=== PATIENT | female | born 2000 | race Caucasian/White ===

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

== ENCOUNTER → 2022-03-31 | Outpatient (CLI) | payer OTHER ==
[2022-04-02 09:08] LABS: HIV AB/P24 AG SCREEN Non Reactive (Non Reactive)
[2022-04-04 09:56] LABS: CHLAMYDIA TRACHOMATIS, NAA Positive (Negative)
== END | disposition home or self-care (01) ==
LOC: LAB 16:04 → LAB SHORT 16:04
PROVIDERS: Nurse Practitioner Family
DX: Z11.3 Encounter for screening for infections with a predominantly sexual mode of transmission (principal)
CPT/HCPCS: 86592; 87389; 87491; 87591

== ENCOUNTER → 2023-05-28 | Outpatient (CLI) | payer SELFPAY ==
[2023-06-01 00:08] LABS: CHLAMYDIA TRACHOMATIS, NAA Negative (Negative)
== END ==
LOC: LAB SHORT 15:35 → LAB 15:35
PROVIDERS: Nurse Practitioner Family
DX: Z12.4 Encounter for screening for malignant neoplasm of cervix (principal)
CPT/HCPCS: 87491; 87591; G0145

== ENCOUNTER 2024-07-26 18:41 | Emergency (ER) | payer SELFPAY ==
[~2024-07-26] VITALS: Ht 160 cm; Wt 72.6 kg
[2024-07-26 19:08] VITALS: BP 104/90
== END 2024-07-26 20:53 | disposition left against medical advice (07) ==
LOC: ER 18:41
DX: M25.562 Pain in left knee (principal); Z53.21 Procedure and treatment not carried out due to patient leaving prior to being seen by health care provider
CPT/HCPCS: 73560-LT